=== PATIENT | female | born 1975 | race Caucasian/White ===

== ENCOUNTER → 2021-04-20 | Day surgery (SDC) | payer MEDICAID ==
[~2021-04-20] MED LIST: LIDOCAINE HCL/EPINEPHRINE 1%-EPI 1:100,000 20 ML VIAL ONE; SODIUM BICARBONATE 4% (2.4MEQ) 5ML VIAL IV ONE
== END | disposition home or self-care (01) ==
LOC: RAD 08:08
DX: N63.20 Unspecified lump in the left breast, unspecified quadrant (principal); R92.8 Other abnormal and inconclusive findings on diagnostic imaging of breast; Z79.899 Other long term (current) drug therapy; Z20.822 Contact with and (suspected) exposure to COVID-19
CPT/HCPCS: 19083; 87426; 88305; J3490